=== PATIENT | male | born 1990 | race Caucasian/White ===

== ENCOUNTER 2019-02-01 13:36 | Emergency (ER) ==
[2019-02-01 13:51] VITALS: BP 138/88; TEMP 98.5; BMI 24.5
[2019-02-01] MEDS ORDERED: BENADRYL IM STA (13:56)
[2019-02-01] MEDS ORDERED: DECADRON 4 MG/ML SDV IM STA (13:57)
--- NOTE | 2019-02-01 14:18 | ED.PDOC ---
General ED Provider: Dr. NATALIE NGO Chief Complaint: Rash Stated Complaint: Rash on face and upper extremities Time Seen by Physician: 14:00 Mode of Arrival: Walk-In Information Source: Patient Exam Limitations: No limitations Primary Care Provider: CASSI PATTERSON Nursing and Triage Documentation Reviewed and Agree: Yes Does patient meet sepsis criteria?: No System Inflammatory Response Syndrome: Not Applicable Sepsis Protocol: For patient's 13 years and over: Temp is 96.8 and below OR 101 and greater Pulse >90 BPM Resp >20/minute Acutely Altered Mental Status Are patient's symptoms suggestive of a new infection, such as: -Pneumonia -Skin, Soft Tissue -Endocarditis -UTI -Bone, Joint Infection -Implantable Device -Acute Abdominal Infection -Wound Infection -Meningitis -Blood Stream Catheter Infection -Unknown Skin Complaint Exam - Skin Rash/Itching Complaint/Exam Onset/Duration: 2 days Symptoms Are: Still present Initial Severity: Mild Current Severity: Mild Location: face/upper extremities Potential Exposures: Reports: Plants (poison aimee) Prior Treatment: none Aggravating: Reports: Heat Alleviating: Reports: None Associated Signs and Symptoms: Denies: Difficulty breathing, Fever, Chills Skin Findings: Present: Urticaria, Vesicles Differential Diagnoses: Poison Aimee/[place] Review of Systems - Review Of Systems Constitutional: Reports: No symptoms (please see photos) Eyes: Reports: No symptoms Ears, Nose, Mouth, Throat: Reports: No symptoms Respiratory: Reports: No symptoms Cardiac: Reports: No symptoms GI: Reports: No symptoms : Reports: No symptoms Musculoskeletal: Reports: No symptoms Skin: Reports: Rash Neurological: Reports: No symptoms Endocrine: Reports: No symptoms Hematologic/Lymphatic: Reports: No symptoms All Other Systems: Reviewed and Negative Past Medical History - Past Medical History Previously Healthy: Yes Endocrine: Reports: None Cardiovascular: Reports: None Respiratory: Reports: None Hematological: Reports: None Gastrointestinal: Reports: None Genitourinary: Reports: None Neuro/Psych: Reports: None Musculoskeletal: Reports: None Cancer: Reports: None - Surgical History General Surgical History: Reports: None - Family History Family History: Reports: None - Social History Smoking Status: Current every day smoker, Heavy tobacco smoker Hx Substance Use: No Alcohol Screening: None - Immunizations Tetanus Shot up to Date: Yes Physical Exam - Physical Exam Appearance: Well-appearing, No pain distress, Well-nourished Eyes: JESSICA, EOMI, Conjunctiva clear ENT: Ears normal, Nose normal, Oropharynx normal Respiratory: Airway patent, Breath sounds clear, Breath sounds equal, Respirations nonlabored Cardiovascular: RRR, Pulses normal, No rub, No murmur GI/: Soft, Nontender, No masses, Bowel sounds normal, No Organomegaly Musculoskeletal: Normal strength, ROM intact, No edema, No calf tenderness Skin: Warm, Dry (please see photos) Neurological: Sensation intact, Motor intact, Reflexes intact, Cranial nerves intact, Alert, Oriented Psychiatric: Affect appropriate, Mood appropriate Critical Care Note - Critical Care Note Total Time (mins): 0 Course - Course Orders, Labs, Meds: Orders Category Date Time Status Dexamethasone 4 mg/ml Inj [Decadron 4 mg/ml Sdv] MEDS 02/01/19 13:57 Discontinued 4 mg IM ONCE STA Diphenhydramine Inj [Benadryl] MEDS 02/01/19 13:56 Discontinued 25 mg IM ONCE STA Medications Discontinued Medications Generic Name Dose Route Start Last Admin Trade Name Freq PRN Reason Stop Dose Admin Dexamethasone Sodium Phosphate 4 mg 02/01/19 13:57 02/01/19 14:08 Decadron 4 Mg/Ml Sdv IM 02/01/19 13:58 4 mg ONCE STA Administration Diphenhydramine HCl 25 mg 02/01/19 13:56 02/01/19 14:07 Benadryl IM 02/01/19 13:57 25 mg ONCE STA Administration Vital Signs: Temp Pulse Resp BP Pulse Ox 02/01/19 13:42 98.5 F 93 H 18 138/88 97 Departure - Departure Time of Disposition: 14:22 Disposition: HOME SELF-CARE Discharge Problem: Pruritic rash, Poison aimee Instructions: Poison Aimee (ED) Condition: Good Pt referred to PMD for follow-up: Yes IPMP verified?: No Additional Instructions: Please call your Family Physician as soon as possible to schedule a follow-up appointment. Prescriptions: Prednisone 40 mg PO DAILYWM #5 tablet Allergies/Adverse Reactions: Allergies No Known Allergies Allergy (Unverified 02/01/19 13:41) Home Medications: Ambulatory Orders Cetirizine HCl [Zyrtec] 10 mg PO DAILY 02/01/19 Pantoprazole Sodium [Protonix] 40 mg PO DAILY 02/01/19 Prednisone 40 mg PO DAILYWM #5 tablet 02/01/19 Disposition Discussed With: Patient, Family
== END 2019-02-01 14:42 | disposition home or self-care (01) ==
LOC: ED 13:36
DX: L23.7 Allergic contact dermatitis due to plants, except food (principal); F17.210 Nicotine dependence, cigarettes, uncomplicated
CPT/HCPCS: 96372; 99282

== ENCOUNTER 2019-02-10 11:48 | Emergency (ER) ==
[2019-02-10 11:52] VITALS: BP 126/78; TEMP 97.9; BMI 25.8
--- NOTE | 2019-02-10 12:14 | ED.PDOC ---
General ED Provider: Dr. NATALIE NGO Chief Complaint: Tooth Problem Stated Complaint: dental pain Time Seen by Physician: 12:00 Mode of Arrival: Walk-In Information Source: Patient Exam Limitations: No limitations Primary Care Provider: CASSI PATTERSON Nursing and Triage Documentation Reviewed and Agree: Yes Does patient meet sepsis criteria?: No System Inflammatory Response Syndrome: Not Applicable Sepsis Protocol: For patient's 13 years and over: Temp is 96.8 and below OR 101 and greater Pulse >90 BPM Resp >20/minute Acutely Altered Mental Status Are patient's symptoms suggestive of a new infection, such as: -Pneumonia -Skin, Soft Tissue -Endocarditis -UTI -Bone, Joint Infection -Implantable Device -Acute Abdominal Infection -Wound Infection -Meningitis -Blood Stream Catheter Infection -Unknown EENT Complaint Exam - Dental/Oral Complaint/Exam Mechanism of Injury: No known trauma Symptoms Are: Still present Timing: Constant Initial Severity: Moderate Current Severity: Moderate Character: Reports: Throbbing Aggravating: Reports: Heat, Cold, Chewing Alleviating: Reports: None Associated Signs and Symptoms: Denies: Swelling, Discharge, Fever, Foul odor, Foul taste in mouth Related History: Reports: Similar episode Cardiac Risk Factors: Reports: None Dental/Oral Surgical History: Reports: None Tooth Findings: Present: Gross caries Cervical Lymphadenopathy Present: No Facial Swelling Present: No Oropharynx Findings: Present: Active bleeding Septal Hematoma: No Foreign Body Present: No Dysphagia Present: No Drooling Present: No Asymmetrical Tonsillar Swelling Present: No Uvula Midline: Yes Naima-tonsillar Fluctuence: No Trismus Present: No Palatal Petechiae Present: No Scarlatinaform Rash Present: No Lesions: Absent: Lip, Gums, Tongue, Buccal Mucosa, Pharynx Exanthem: Absent: Lip, Gums, Tongue, Buccal Mucosa, Pharynx Vesicles: Absent: Lip, Gums, Tongue, Buccal Mucosa, Pharynx Teeth Picture: 1 - decay Differential Diagnoses: Dental Caries, Fractured Tooth Review of Systems - Review Of Systems Constitutional: Reports: No symptoms Eyes: Reports: No symptoms Ears, Nose, Mouth, Throat: Reports: Mouth pain Respiratory: Reports: No symptoms Cardiac: Reports: No symptoms GI: Reports: No symptoms : Reports: No symptoms Musculoskeletal: Reports: No symptoms Skin: Reports: No symptoms Neurological: Reports: No symptoms Endocrine: Reports: No symptoms Hematologic/Lymphatic: Reports: No symptoms All Other Systems: Reviewed and Negative Past Medical History - Past Medical History Previously Healthy: Yes Endocrine: Reports: None Cardiovascular: Reports: None Respiratory: Reports: None Hematological: Reports: None Gastrointestinal: Reports: None Genitourinary: Reports: None Neuro/Psych: Reports: None Musculoskeletal: Reports: None Cancer: Reports: None - Surgical History General Surgical History: Reports: None - Family History Family History: Reports: None - Social History Smoking Status: Current every day smoker Hx Substance Use: No Alcohol Screening: None - Immunizations Tetanus Shot up to Date: Yes Physical Exam - Physical Exam Appearance: Well-appearing, No pain distress, Well-nourished Eyes: JESSICA, EOMI, Conjunctiva clear ENT: Ears normal, Nose normal, Oropharynx normal Respiratory: Airway patent, Breath sounds clear, Breath sounds equal, Respirations nonlabored Cardiovascular: RRR, Pulses normal, No rub, No murmur GI/: Soft, Nontender, No masses, Bowel sounds normal, No Organomegaly Musculoskeletal: Normal strength, ROM intact, No edema, No calf tenderness Skin: Warm, Dry, Normal color Neurological: Sensation intact, Motor intact, Reflexes intact, Cranial nerves intact, Alert, Oriented Psychiatric: Affect appropriate, Mood appropriate Critical Care Note - Critical Care Note Total Time (mins): 0 Course - Course Vital Signs: Temp Pulse Resp BP Pulse Ox 02/10/19 11:48 97.9 F 102 H 18 126/78 98 Departure - Departure Time of Disposition: 12:13 Disposition: HOME SELF-CARE Discharge Problem: Toothache Instructions: Toothache (ED) Condition: Good Pt referred to PMD for follow-up: Yes IPMP verified?: No Additional Instructions: Please call your Family Physician as soon as possible to schedule a follow-up appointment. Prescriptions: Hydrocodone Bit/Acetaminophen [[place] 10-325] 1 each PO Q6HR #20 tablet Amoxicillin 500 mg PO Q8HR #30 tablet Allergies/Adverse Reactions: Allergies No Known Allergies Allergy (Unverified 02/01/19 13:41) Home Medications: Ambulatory Orders Cetirizine HCl [Zyrtec] 10 mg PO DAILY 02/01/19 Pantoprazole Sodium [Protonix] 40 mg PO DAILY 02/01/19 Amoxicillin 500 mg PO Q8HR #30 tablet 02/10/19 Hydrocodone Bit/Acetaminophen [[place] 10-325] 1 each PO Q6HR #20 tablet 02/10/19
== END 2019-02-10 12:20 | disposition home or self-care (01) ==
LOC: ED 11:48
DX: K08.89 Other specified disorders of teeth and supporting structures (principal); K02.7 Dental root caries; S02.5XXA Fracture of tooth (traumatic), initial encounter for closed fracture; F17.210 Nicotine dependence, cigarettes, uncomplicated
CPT/HCPCS: 99282